=== PATIENT | female | born 1995 | race Caucasian/White ===

== ENCOUNTER 2019-08-29 21:59 | Emergency (ER) | payer OTHER ==
[2019-08-29 22:52] LABS: Urine Blood TRACE (NEG); Urine Glucose NEGATIVE (NEG); Urine Protein NEGATIVE (NEG); Urine Specific Gravity >1.030 (1.005-1.030)
[2019-08-29 22:53] LABS: Absolute Lymphocytes (CBC) 2.4 K/uL (0.7-4.9); Basophils % 0.9 % (0-1.3); Hematocrit 40.6 % (36.0-45.0); Lymphocytes % 28.2 % (15.3-44.8); MPV 8.6 fL (7.6-11.3); RBC Red Blood Cell Count 4.54 M/uL (3.86-4.86)
[2019-08-29 23:10] LABS: ALT/SGPT 20 U/L (12-78); AST/SGOT 11 U/L (15-37); Albumin 3.5 g/dL (3.4-5.0); Alkaline Phosphatase 58 U/L (45-117); BUN Blood Urea Nitrogen 17 mg/dL (7-18); Bicarbonate 25 mmol/L (21-32); Bilirubin Direct < 0.1 mg/dL (0-0.2); Bilirubin Total 0.2 mg/dL (0.2-1.0); Glucose Level 95 mg/dL (74-106); Lipase 151 U/L (73-393); Potassium 3.9 mmol/L (3.5-5.1); Protein, Total 7.8 g/dL (6.4-8.2); Sodium Level 143 mmol/L (136-145)
--- NOTE | 2019-08-30 00:40 | EDPHYS ---
Physician Documentation [facility] Name: Yadira Lazaro Age: 23 yrs Sex: Female : 1995 Arrival Date: 08/29/2019 Time: 22:04 Bed 5 Private MD: ED Physician Paco Meléndez HPI: 08/28 22:23 This 23 yrs old Female presents to ER via Ambulatory with complaints of pkl Rectal Bleeding, Rectal Pain. 22:23 The patient presents to the emergency department with bleeding from the rectum/anus, pkl pain in the rectal area. Onset: The symptoms/episode began/occurred 1 week(s) ago. Historical: - Allergies: 22:12 No Known Allergies; sg - Home Meds: 22:12 None [Active]; sg - PMHx: 22:12 None; sg - PSHx: 22:12 None; sg - Immunization history:: Adult Immunizations up to date. - Social history:: Smoking status: Patient denies any tobacco usage or history of. ROS: 22:23 Eyes: Negative for injury, pain, redness, and discharge, ENT: Negative for injury, pkl pain, and discharge, Neck: Negative for injury, pain, and swelling, Cardiovascular: Negative for chest pain, palpitations, and edema, Respiratory: Negative for shortness of breath, cough, wheezing, and pleuritic chest pain. 22:23 Abdomen/GI: Positive for rectal pain, rectal bleeding. 22:23 Back: Negative for acute changes. 22:23 : Negative for urinary symptoms. 22:23 MS/extremity: Negative for acute changes. 22:23 Skin: Negative for rash. 22:23 Neuro: Negative for altered mental status. Exam: 22:23 Head/Face: Normocephalic, atraumatic. Eyes: Pupils equal round and reactive to light, pkl extra-ocular motions intact. Lids and lashes normal. Conjunctiva and sclera are non-icteric and not injected. Cornea within normal limits. Periorbital areas with no swelling, redness, or edema. ENT: Nares patent. No nasal discharge, no septal abnormalities noted. Tympanic membranes are normal and external auditory canals are clear. Oropharynx with no redness, swelling, or masses, exudates, or evidence of obstruction, uvula midline. Mucous membranes moist. Neck: Trachea midline, no thyromegaly or masses palpated, and no cervical lymphadenopathy. Supple, full range of motion without nuchal rigidity, or vertebral point tenderness. No Meningismus. Chest/axilla: Normal chest wall appearance and motion. Nontender with no deformity. No lesions are appreciated. Cardiovascular: Regular rate and rhythm with a normal S1 and S2. No gallops, murmurs, or rubs. Normal PMI, no JVD. No pulse deficits. Respiratory: Lungs have equal breath sounds bilaterally, clear to auscultation and percussion. No rales, rhonchi or wheezes noted. No increased work of breathing, no retractions or nasal flaring. 22:23 Abdomen/GI: Bowel sounds: normal, Palpation: abdomen is soft and non-tender, in all quadrants, Rectal exam: Stool: guaiac negative, tenderness, that is moderate, the exam is chaperoned by the nurse. 22:23 Back: Exam negative for acute changes. 22:23 : Exam negative for acute changes. 22:23 Musculoskeletal/extremity: Exam is negative for acute changes. 22:23 Skin: Exam negative for rash. 22:23 Neuro: Orientation: is normal, Mentation: is normal, Cranial nerves: grossly normal, Motor: is normal. Vital Signs: 22:10 Temp 97.1; sg 22:10 BP 132 / 70; Pulse 77; Resp 16; Pulse Ox 100% on R/A; Pain 4/10; sg 23:45 BP 173 / 105; Pulse 100; Resp 18; Pulse Ox 100% on R/A; jb4 08/29 00:30 BP 160 / 98; Pulse 94; Resp 16; Pulse Ox 98% on R/A; jb4 MDM: 08/28 22:07 Patient medically screened. pkl 08/29 00:34 Data reviewed: vital signs, nurses notes, lab test result(s), radiologic studies, CT pkl scan. ED course: Discussed lab. and CT Scan results with patient. Advised to follow up with [employer] next week for further evaluations. Patient understood instructions. 08/28 22:22 Order name: Basic Metabolic Panel; Complete Time: 23:11 pkl 08/28 22:22 Order name: CBC with Diff; Complete Time: 23:03 pkl 08/28 22:22 Order name: Creatinine for Radiology; Complete Time: 23:11 pkl 08/28 22:22 Order name: Hepatic Function; Complete Time: 23:11 pkl 08/28 22:22 Order name: Lipase; Complete Time: 23:11 pkl 08/28 22:34 Order name: Urine Dipstick--Ancillary (enter results); Complete Time: 22:54 sg 08/28 22:22 Order name: IV Saline Lock; Complete Time: 22:48 pkl 08/28 22:22 Order name: Labs collected and sent; Complete Time: 22:48 pkl 08/28 22:22 Order name: CT Abd/Pelvis - IV Contrast Only pkl 08/28 22:34 Order name: Urine --Ancillary (enter results); Complete Time: 22:54 sg 08/28 22:37 Order name: Urine Dipstick-Ancillary (obtain specimen); Complete Time: 22:37 rr5 08/28 22:37 Order name: Urine Test (obtain specimen); Complete Time: 22:37 rr5 Administered Medications: No medications were administered Disposition: 08/30/19 00:39 Discharged to Home. Impression: Rectal pain. Rectal bleeding. - Condition is Stable. - Medication Reconciliation Form, Thank You Letter, Antibiotic Education, Prescription Opioid Use form. - Follow up: Private Physician; When: 2 - 3 days; Reason: Re-evaluation by your physician. - Problem is new. - Symptoms have improved. Signatures: Dispatcher [employer] EDKy Gray RN Paco Barbour MD MD pkl Bryson, James, RN RN jb4 John Obrien RN RN rr5 Corrections: (The following items were deleted from the chart) 00:48 00:39 08/30/2019 00:39 Discharged to Home. Impression: Rectal pain. Rectal bleeding. jb4 Condition is Stable. Forms are Medication Reconciliation Form, Thank You Letter, Antibiotic Education, Prescription Opioid Use. Follow up: Private Physician; When: 2 - 3 days; Reason: Re-evaluation by your physician. Problem is new. Symptoms have improved. pkl
--- NOTE | 2019-08-30 00:40 | ER ---
Nurse's Notes [facility] Name: Yadira Lazaro Age: 23 yrs Sex: Female : 1995 Arrival Date: 08/29/2019 Time: 22:04 Bed 5 Private MD: Diagnosis: Rectal pain. Rectal bleeding Presentation: 08/28 22:10 Chief complaint: Patient states: Having pain and bleeding from the rectum for several sg days, denies a history of hemorrhoids, denies injury or trauma to the area. Coronavirus screen: Proceed with normal triage. Ebola Screen: Patient negative for fever greater than or equal to 101.5 degrees Fahrenheit, and additional compatible Ebola Virus Disease symptoms Patient denies exposure to infectious person. Patient denies travel to an Ebola-affected area in the 21 days before illness onset. No symptoms or risks identified at this time. Initial Sepsis Screen: Does the patient meet any 2 criteria? No. Patient's initial sepsis screen is negative. Does the patient have a suspected source of infection? No. Patient's initial sepsis screen is negative. Risk Assessment: Do you want to hurt yourself or someone else? Patient reports no desire to harm self or others. Onset of symptoms was August 29, 2019. Care prior to arrival: None. 22:10 Method Of Arrival: Ambulatory sg 22:10 Acuity: ANALI 3 sg Historical: - Allergies: 22:12 No Known Allergies; sg - Home Meds: 22:12 None [Active]; sg - PMHx: 22:12 None; sg - PSHx: 22:12 None; sg - Immunization history:: Adult Immunizations up to date. - Social history:: Smoking status: Patient denies any tobacco usage or history of. Screenin:47 Abuse screen: Denies threats or abuse. Denies injuries from another. Nutritional rr5 screening: No deficits noted. Tuberculosis screening: No symptoms or risk factors identified. Fall Risk IV access (20 points). Total Pa Fall Scale indicates No Risk (0-24 pts). Assessment: 22:20 General: Appears in no apparent distress. comfortable, Behavior is calm, cooperative, rr5 appropriate for age, seen and examined by ED provider assisted by elena BURNETTE. 22:20 Pain: Complains of pain in rectum Pain does not radiate. Pain currently is 2 out of 10 rr5 on a pain scale. Quality of pain is described as discomfort Pain began gradually, Is intermittent. Neuro: Level of Consciousness is awake, alert, obeys commands, Oriented to person, place, time, situation, Appropriate for age. Cardiovascular: Capillary refill < 3 seconds Patient's skin is warm and dry. Respiratory: Airway is patent Respiratory effort is even, unlabored, Respiratory pattern is regular, symmetrical. GI: Reports rectal bleeding. : No signs and/or symptoms were reported regarding the genitourinary system. EENT: No signs and/or symptoms were reported regarding the EENT system. Derm: Skin is intact, is healthy with good turgor, Skin temperature is warm. Musculoskeletal: Circulation, motion, and sensation intact. Capillary refill < 3 seconds. 23:30 Reassessment: Patient appears in no apparent distress at this time. Patient and/or jb4 family updated on plan of care and expected duration. Pain level reassessed. Patient is alert, oriented x 3, equal unlabored respirations, skin warm/dry/pink. Vital Signs: 22:10 Temp 97.1; sg 22:10 BP 132 / 70; Pulse 77; Resp 16; Pulse Ox 100% on R/A; Pain 4/10; sg 23:45 BP 173 / 105; Pulse 100; Resp 18; Pulse Ox 100% on R/A; jb4 08/29 00:30 BP 160 / 98; Pulse 94; Resp 16; Pulse Ox 98% on R/A; jb4 ED Course: 08/28 22:04 Patient arrived in ED. ag3 22:06 Paco Meléndez MD is Attending Physician. pkl 22:12 Triage completed. sg 22:12 Arm band placed on. sg 22:15 Patient has correct armband on for positive identification. Placed in gown. Bed in low rr5 position. Call light in reach. Pulse ox on. NIBP on. 22:16 John Obrien RN is Primary Nurse. rr5 22:21 Served as a gut sorter during rectal exam. Guaic negative. ll1 22:26 Radiology exam delayed due to lab results not completed at this time. (BUN/Creatinine) mw3 test not completed at this time. 22:45 Inserted saline lock: 20 gauge in right forearm, using aseptic technique. ,using rr5 aseptic technique. inserted by [facility] Blood collected. 23:35 CT Abd/Pelvis - IV Contrast Only In Process Unspecified. EDMS 08/29 00:30 IV discontinued, intact, bleeding controlled, No redness/swelling at site. Pressure jb4 dressing applied. Administered Medications: No medications were administered Outcome: 00:39 Discharge ordered by . carter 00:48 Discharged to home ambulatory. jb4 00:48 Condition: stable 00:48 Discharge instructions given to patient, Instructed on discharge instructions, follow up and referral plans. medication usage, Demonstrated understanding of instructions, follow-up care, medications, Prescriptions given X 1. 00:48 Patient left the ED. jb4 Signatures: Dispatcher [employer] EDMS Ky Bowie, RN RN sg Paco Meléndez MD MD pkl Sulaiman Schafer RN RN jb4 Annalise Jean Baptiste mw3 Ellie Caballero 3 John Obrien RN RN rr5 Elena Patino RN RN ll1 Corrections: (The following items were deleted from the chart) 08/28 22:25 22:10 Acuity: ANALI 4 sg 22:26 22:10 BP 142 / 70; Pulse 77bpm; Resp 16bpm; Pulse Ox 100% RA; Pain 4/10; sg
[2019-08-30 00:55] VITALS: TEMP 97.1
[2019-08-30 00:58] VITALS: BP 160/98; O2SAT 98
--- NOTE | 2019-08-30 12:15 | RAD REPORT ---
EXAM DESCRIPTION: CT - Abdomen Pelvis W Contrast - 08/30/2019 6:56 am COMPARISON: None CLINICAL HISTORY: Rectal pain and bleeding TECHNIQUE: Multiple helical axial images were obtained through the abdomen and pelvis using intraven ous contrast. Coronal and sagittal reformatted images were obtained. All CT scans at this facility use dose modulation, iterative reconstruction, and/or weight-based dosi ng when appropriate to reduce radiation dose to as low as reasonably achievable. FINDINGS: Lung bases: Appear unremarkable. Liver: Homogenous attenuation is noted. Gallbladder/biliary: Appears unremarkable Pancreas: Unremarkable. No evidence of ductal enlargement. Spleen: Appears unremarkable. No splenomegaly. Adrenals: Unremarkable. Kidneys and ureters: No evidence of hydronephrosis. Normal enhancement. Bladder: Unremarkable. Pelvic organs: Vaginal pessary device is demonstrated. Uterus and ovaries appear unremarkable. Bowel: No evidence of bowel obstruction. No bowel wall thickening. Appendix appears unremarkable. Vasculature: Unremarkable. Peritoneum: No free air. No significant free fluid. Lymph nodes: Unremarkable. Soft tissues: Unremarkable. Bones: Chronic bilateral pars defects at L5 are present. IMPRESSION: No evidence for an acute process within the abdomen or pelvis. Electronically signed by: Rakesh St MD 08/30/2019 12:07 AM CDT Due to temporary technical issues with the PACS/Fluency reporting system, reports are being signed by the in house radiologist as a courtesy to ensure prompt reporting. The interpreting radiologist is f ully responsible for the content of the report.
== END 2019-08-30 00:48 | disposition home or self-care (01) ==
LOC: ER 21:59
DX: K62.5 Hemorrhage of anus and rectum (principal)
CPT/HCPCS: 85025; 80048; 36415; 81025; 80076; 81003; 83690; 74177; Q9967; 99284

== ENCOUNTER 2021-02-10 07:05 | Day surgery (SDC) | payer OTHER ==
[2021-02-10 07:29] LABS: Specific Gravity 1.015 (1.005-1.030)
[2021-02-10] MEDS ORDERED: Ringers Lactate 1,000 ML IV ONE (07:33)
[2021-02-10] MEDS ORDERED: dexAMETHasone 10 MG/ML VIAL ONE (08:33)
[2021-02-10] MEDS ORDERED: ONDANSETRON 4 MG/2 ML VIAL ONE ×2 (08:33→10:43)
[2021-02-10] MEDS ORDERED: LIDOCAINE 2% MPF 5 ML VIAL ONE (08:33)
[2021-02-10] MEDS ORDERED: MIDAZOLAM HCL 2 MG/2 ML INJ ONE (08:33)
[2021-02-10] MEDS ORDERED: propofoL 200 MG/20 ML VIAL IV ONE (08:33)
[2021-02-10] MEDS ORDERED: FENTANYL CITR 100 MCG/2 ML ONE ×2 (08:33→09:48)
[2021-02-10] MEDS ORDERED: ROCURONIUM 50 MG/5 ML VIAL IV ONE (08:34)
[2021-02-10] MEDS ORDERED: EPINEPHRINE/PF 1 MG/ML AMP ONE (09:19)
--- NOTE | 2021-02-10 10:04 | P.OP ---
Pre-Op Diagnosis: Chronic tonsillitis Post-Op Diagnosis: Chronic tonsillitis Procedure: Tonsillectomy Anesthesia: Other (GA via ETT) Fluids/ Blood products: Other (crystalloid 450ml) Estimated blood loss: Other (20ml) Specimen: Other (bilateral tonsils) Findings: chronically inflammed and scarred tonsils Complications: None Implants: None Indication: Patient persistent issues in spite of good medical management. Details of Operation: The patient was brought to the operating room and placed under general anesthesia via endotracheal tube. The head of bed was turned 90 degrees. A Shoulder roll was placed and the neck extended. A head drape was applied. The McIvor mouth gag was placed and suspended from the Up stand. The oxygen concentrate was confirmed with the linen worker and was less than forty percent. Weight-based dexamethasone was administered by the linen worker. The s oft palate was palpated and there was no submucous cleft. A red rubber catheter was placed in the nose and secured to retract the soft palate. The tonsils were noted to be deep chronically inflammed. The left tonsil was grasped with a straight Allis clamp. The bovie electocautery was used to incision the mucosa over the anterior pillar and identify the tonsillar capsule. The tonsil was dissected using cautery and blunt dissection until free from soft tissue attachments. A tonsil ball was placed to aid hemostasis. The right tonsil was removed in a similar manner. The laryngeal mirror was used to visualize the nasopharynx. The adenoid size was minimal. The adenoids were not removed. Hemostasis was achieved using packing soaked with epi and cautery as needed. Blood loss was minimal. All packing was removed. The tonsillar fossae were injected with 0.5% Marcaine. A total of 3.5mL was used. A Salum sump orogastric tube was used to decompress the stomach. The red rubber catheter was removed and used to suction the nasopharynx and nasal cavity. The mouth gag was removed; there was no evidence of injury to the lips, teeth or tongue. The mandible was mobile. During early emergence and suctioning by anesthesia, there was moderate blood noted in the oral cavity. The McIvor was replaced and the oropharynx packed with 2 ray-tecs while remaining instruments were re-arranged and suction cautery activated. The right packing was removed and bleeding noted in the superior pole was cauterized until dry. Left packing was removed and there was no active bleeding but a small amount of cautery was applied to the superior fossa. The McIvor was relaxed for a few minutes and the oropharynx reexamined and appeared dry. The patient was then turned over to anesthesia for awakening and ext ubation in the operating room which proceeded without further complication. Disposition: The patient was then awakened from anesthesia and taken to the recovery room in stable condition.
[2021-02-10 10:14] VITALS: O2SAT 100
[2021-02-10] MEDS: MEPERIDINE HCL 25 MG/ML SYR ONE ×2 (10:20→10:25)
[2021-02-10] MEDS ORDERED: HYDROMORPHONE HCL 1 MG/ML INJ ONE (10:43)
[2021-02-10 11:26] VITALS: BP 134/84; TEMP 97
[2021-02-10] MEDS ORDERED: HYDROCOD 2.5mg-ACETAMIN 108mg/5mL Soln ONE (11:42)
== END 2021-02-10 12:00 | disposition home or self-care (01) ==
LOC: OR 07:05
PROVIDERS: ATTEND Otolaryngology
PROC: 0CTPXZZ Resection of Tonsils, External Approach (ICD-10-PCS; principal; 2021-02-10 08:30)
DX: J35.01 Chronic tonsillitis (principal); J35.8 Other chronic diseases of tonsils and adenoids; J03.91 Acute recurrent tonsillitis, unspecified; Z20.822 Contact with and (suspected) exposure to COVID-19
CPT/HCPCS: 81025; 88304; 42826; U0003; J2704; J0171; J2250; J3010 ×2; J1100; J2175; J1170; J7120; J2405 ×2